=== PATIENT | male | born 1960 | race Caucasian/White ===

== ENCOUNTER 2016-11-09 09:18 | Emergency (ER) | payer SELFPAY ==
--- NOTE | 2016-11-09 09:35 | EDM.PDOC ---
ED HPI GENERAL MEDICAL PROBLEM - General Chief Complaint: Trauma Stated Complaint: HEAD AND EAR LAC Time Seen by Provider: 11/09/16 09:35 Source of Information: Reports: Patient History Limitations: Reports: No Limitations - History of Present Illness INITIAL COMMENTS - FREE TEXT/NARRATIVE: 56-year-old male sent from the occupational health clinic after suffering an injury in the workplace this morning. He was struck in the side of the head by a piece of pipe suffering closed head injury and laceration to his ear. It's unclear how this accident happened. Patient didn't see the pipe coming. It struck him in the right side of the head injuring is posterior mid ear pinna and mastoid process area. The force of the blow knocked him to the ground and he was dazed temporarily. He was intermittently nauseated for a period of time nausea has cleared he has a headache at this time but does not feel it's but not to warrant Tylenol or Motrin. He needs a tetanus update as it's been greater than 10 years since his last vaccination. He reports no other injuries. States his neck feels a little stiff and sore but he has full unopposed range of motion. Onset: Today Onset Date: 11/09/16 Onset Time: 07:30 Duration: Hour(s): Location: Reports: Head (Right parietal scalp and ear.) Quality: Reports: Ache, Stabbing, Other Severity: Moderate (Burning) Improves with: Reports: None Worsens with: Reports: None Context: Reports: Trauma (Struck by a threaded end of a large piece of metal pipe in the workplace.). Denies: Activity, Exercise, Lifting, Sick Contact Associated Symptoms: Reports: Headaches, Nausea/Vomiting (Headache nausea initially but not now), Other. 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) (None.) Right Head Pain Score (Numeric/FACES): 3 - Related Data Allergies Allergy/AdvReac Type Severity Reaction Status Date / Time ciprofloxacin [From Cipro] Allergy Hives Verified 11/09/16 09:48 Home Meds: Home Meds Lisinopril 10 mg PO DAILY 11/09/16 [History] Social & Family History - Living Situation & Occupation Occupation: Employed ED ROS GENERAL - Review of Systems Review Of Systems: See Below Constitutional: Reports: No Symptoms HEENT: Reports: No Symptoms Respiratory: Reports: No Symptoms Cardiovascular: Reports: No Symptoms Endocrine: Reports: No Symptoms GI/Abdominal: Reports: No Symptoms : Reports: No Symptoms Musculoskeletal: Reports: No Symptoms Skin: Reports: No Symptoms Neurological: Reports: No Symptoms Psychiatric: Reports: No Symptoms Hematologic/Lymphatic: Reports: No Symptoms Immunologic: Reports: No Symptoms ED EXAM, HEAD INJURY - Physical Exam Exam: See Below Exam Limited By: No Limitations General Appearance: Alert, WD/WN, No Apparent Distress Head: Other (Patient has suffered 2 linear lacerations superior to his ear and posterior to the ear I over the mastoid process and parietal scalp. There is a linear laceration to the mid posterior right ear pinna that will require suture repair.) Nexus Criteria: No: Posterior, Midline Cervical Tenderness, Evidence of Intoxication, Altered Level of Consciousness, Focal Neurological Deficit, Painful Distraction Injuries Eyes: Bilateral Eye: Normal Inspection Ears: Normal Canal, Hearing Grossly Normal, Normal TMs, Other (Patient has suffered traumatic injury to his ear with a laceration through the mid ear pinna anteriorly. It is approximately 1.4 cm in length. There is lacerations posterior to the ear on the scalp slightly superior to his ear.) Nose: Normal Inspection ( Of these will require sutures.) Throat/Mouth: Normal Inspection, Normal Lips, Normal Teeth, Normal Oropharynx Neck: Normal Alignment, Normal Inspection, Paraspinous Muscle Tender (Minimal on the right side.). No: Muscle Spasm Respiratory: No Respiratory Distress, Lungs Clear, Normal Breath Sounds, No Accessory Muscle Use Cardiovascular: Normal Peripheral Pulses, Regular Rate, Rhythm, No Edema, No Gallop, No Murmur, No Rub ED LACERATION/WOUND & SADIA PROC - Laceration/Wound Repair Right Ear Lac/wound length in cm: 1.5 Appearance: Subcutaneous, Clean Distal NVT: Neuro & Vascular Intact Anesthetic Type: Local Local Anesthesia - Lidocaine (Xylocaine): 1% Plain Local Anesthetic Volume: 3cc Exploration/Debridement/Repair: Multiple Flaps Aligned Closed with: Sutures Suture Size: other (5-0) # of Sutures: 7 Suture Type: Nylon, Interrupted, Simple Course - Vital Signs Last Recorded V/S: Last Vital Signs Temp 36.1 C 11/09/16 09:37 Pulse 58 L 09/06/17 09:37 Resp 12 11/09/16 09:37 BP 171/116 H 11/09/16 09:37 Pulse Ox 99 11/09/16 09:37 - Orders/Labs/Meds Orders: Active Orders 24 hr Category Date Time Status Vaccines to be Administered [RC] PER UNIT ROUTINE Care 11/09/16 09:44 Active Meds: Medications Discontinued Medications Generic Name Dose Route Start Last Admin Trade Name Gege PRN Reason Stop Dose Admin Diphtheria/Tetanus/Acell Pertussis 0.5 ml 11/09/16 09:44 Adacel IM 11/09/16 09:45 .ONCE ONE Lidocaine HCl 10 ml 11/09/16 09:44 11/09/16 10:26 Xylocaine 1% INJECT 11/09/16 09:45 10 ml ONETIME ONE Administration Lidocaine HCl Confirm 11/09/16 10:30 Xylocaine 1% Administered 11/09/16 10:31 Dose 10 ml .ROUTE .[facility] - Radiology Interpretation Free Text/Narrative:: 56-year-old male presents the ED after suffering a work-related injury. He was struck in the right side of his head by a large piece of threaded metal pipe. This knocked him to the ground. Injury occurred approximately 0730 hrs. this morning. Patient had no awareness that the pipe was coming at him. It did not his heart had off. He suffered lacerations to the posterior aspect of his right ear 2 each about a centimeter in length and a laceration in the mid posterior ear pinna anteriorly. There is no injury to the ear canal or the eardrum. He requires tetanus and diphtheria and pertussis vaccine update. CT of the head to be done to rule out injuries to the mastoid process area. Lacerations will require sutures. - Re-Assessments/Exams Free Text/Narrative Re-Assessment/Exam: 11/09/16 10:12 CT of the head is normal with no fracture in the mastoid process or skull area. No basal skull fracture. We'll proceed with wound cleanse and laceration repair. 11/09/16 10:51 laceration to the right ear pinna sutured under local anesthetic using 3 mL of 1% lidocaine. Laceration is 1.5 cm in length and sutured 7 with 5 -0 Ethilon suture. Laceration posterior to the right ear 1.8 cm cleansed and anesthetized with 3 mL of lidocaine 1%. It too was sutured 7 with 5-0 Ethilon suture. Sutures will need to be removed in 8 days time. He will apply and topical antibiotic such as bacitracin or Polysporin to each wound once daily. At this time he apparently has alternative work duties that he is going to build to return to. He will not be able to wear hard hat or ear protection. Departure - Departure Time of Disposition: 10:48 Disposition: Home, Self-Care 01 Condition: Fair Clinical Impression: Closed head injury without concussion Qualifiers: Encounter type: initial encounter Qualified Code(s): S09.90XA - Unspecified injury of head, initial encounter Laceration of skin of scalp Qualifiers: Encounter type: initial encounter Qualified Code(s): S01.01XA - Laceration without foreign body of scalp, initial encounter Laceration of ear without complication Qualifiers: Encounter type: initial encounter Laterality: right Qualified Code(s): S01.311A - Laceration without foreign body of right ear, initial encounter - Discharge Information Referrals: PCP,None [Primary Care Provider] - Forms: ED Department Discharge, ED Return to Work/School Form Additional Instructions: Evaluation in the emergency room today in regards to work related injury suffered this morning. Struck in the right side of the head by a large piece of pipe. This resulted in injuries to your ear pinna and lacerations to the scalp posterior to your ear. Blunt force trauma was significant enough to knock it to the ground. Mild cervical strain has occurred and likely neck will be much more stiff and sore tomorrow and the next day. CT of the head was carried out to make sure there was no significant injury to the mastoid process which is behind her right ear and is a bone made up with honeycomb structure. No injuries on CT were identified to this area or base of the brain or to the brain itself or fracture of the skull. Lacerations were cleansed and then sutured under local anesthetic. Treatment is to daily cleanse these areas with soap and water. Showering is okay. Then apply topical antibiotic such as bacitracin or Polysporin to wounds at least once daily until sutures are removed. Sutures may be removed in 8 days time. May take Motrin or Tylenol for headache as needed. Tetanus toxoid with diphtheria and pertussis vaccine was updated today and is good for the next 10 years. May return to work if there are alternative work duties available to you. He will likely not be able to wear your hardhat or ear protection for the next 10 days. - My Orders Last 24 Hours: My Active Orders 11/09/16 09:44 Vaccines to be Administered [RC] PER UNIT ROUTINE - Assessment/Plan Last 24 Hours: My Active Orders 11/09/16 09:44 Vaccines to be Administered [RC] PER UNIT ROUTINE ED LACERATION PROCEDURES - Laceration/Wound Repair Right Ear Lac/wound length in cm: 1.8 (Laceration posterior to right ear) Appearance: Superficial Anesthetic Type: Local Local Anesthesia - Lidocaine (Xylocaine): 1% Plain Local Anesthetic Volume: 3cc Exploration/Debridement/Repair: Minimal Debridement Closed with: Sutures Suture Size: other (5-0) # of Sutures: 7 Suture Type: Nylon, Interrupted, Simple
[2016-11-09] MEDS ORDERED: Lidocaine 1% 10 ML MDV INJECT ONE ×2 (09:44→10:59)
[2016-11-09] MEDS ORDERED: Diphtheria,Pertussis(Acell),Tetanus Vaccine 0.5 ML SDV IM ONE (09:44)
--- NOTE | 2016-11-09 10:12 | CT ---
Head CT Technique: Multiple axial sections through the brain were obtained. Intravenous contrast was not utilized. Comparison: No previous study. Findings: Ventricles along with basal cisterns and sulci over the convexities appear within normal limits for the patient's age. No abnormal parenchymal densities are seen. No evidence of intracranial hemorrhage. No midline shift or mass effect is seen. Bone window settings were reviewed which shows minimal mucosal thickening within the posterior right ethmoid sinuses which is felt to be incidental. No acute skull abnormality is seen. Impression: 1. Sinus finding which is felt to be incidental. 2. Nothing acute is identified on noncontrast head CT study. Diagnostic code #1
[2016-11-09] MEDS ORDERED: Lidocaine 1% 10 ML MDV ONE (10:30)
[2016-11-09 11:13] VITALS: BP 171/114
== END 2016-11-09 11:15 | disposition home or self-care (01) ==
LOC: JD.ED 09:18
DX: S09.90XA Unspecified injury of head, initial encounter (principal); S01.311A Laceration without foreign body of right ear, initial encounter; S01.01XA Laceration without foreign body of scalp, initial encounter; Z23 Encounter for immunization; Z79.899 Other long term (current) drug therapy; Z88.1 Allergy status to other antibiotic agents; W22.8XXA Striking against or struck by other objects, initial encounter; Y99.0 Civilian activity done for income or pay
CPT/HCPCS: 12001; 12011; 70450; 70450-26; 90471; 90715; 99283; 99284-25